=== PATIENT | female | born 1995 | race American Indian/Alaskan Native ===

== ENCOUNTER 2017-03-31 16:46 | Emergency (ER) | payer SELFPAY ==
[2017-03-31 16:59] VITALS: BP 99/66
[2017-03-31 17:44] LABS: Basophils % (Auto) 0.5 % (0.0-1.8); Eosinophils % (Auto) 5.9 % (0.0-4.3); Hematocrit 39.8 % (30.3-42.9); Hemoglobin 14.1 gm/dl (10.1-14.3); Mean Corpuscular HGB Conc 35 % (30-34); Mean Corpuscular Hemoglobin 34 pg (28-32); Mean Corpuscular Volume 96 fl (79-97); Platelet Count 229 K/mm3 (140-440); Red Blood Count 4.15 M/mm3 (3.65-5.03); White Blood Count 10.2 K/mm3 (4.5-11.0)
[2017-03-31 17:54] LABS: Alanine Aminotransferase 15 units/L (7-56); Albumin 4.5 g/dL (3.9-5); Albumin/Globulin Ratio 1.3 %; Alkaline Phosphatase 64 units/L (35-129); Anion Gap 18 mmol/L; BUN/Creatinine Ratio 18; Blood Urea Nitrogen 18 mg/dL (7-17); Calcium 9.8 mg/dL (8.4-10.2); Carbon Dioxide 26 mmol/L (22-30); Chloride 98.5 mmol/L (98-107); Glucose 64 mg/dL (65-100); Potassium 4.1 mmol/L (3.6-5.0); Sodium 138 mmol/L (137-145)
== END 2017-03-31 17:56 ==
LOC: ED 16:46
DX: N89.8 Other specified noninflammatory disorders of vagina (principal); Z53.21 Procedure and treatment not carried out due to patient leaving prior to being seen by health care provider
CPT/HCPCS: 36415; 80053; 84703; 85025

== ENCOUNTER 2019-12-06 06:33 | Emergency (ER) | payer MEDICAID | END 2019-12-06 06:50 | disposition left against medical advice (07) | LOC: ED 06:33 | DX: R09.81 Nasal congestion (principal); Z53.21 Procedure and treatment not carried out due to patient leaving prior to being seen by health care provider ==

== ENCOUNTER 2020-10-27 04:05 | Emergency (ER) | payer MEDICAID ==
[2020-10-27 04:23] VITALS: BP 126/84
[2020-10-27] MEDS ORDERED: AZITHROMYCIN 1 GM ORAL PWDR PACKET PO ONE (06:46)
[2020-10-27] MEDS ORDERED: metroNIDAZOLE 500 MG TAB PO ONE (06:46)
[2020-10-27] MEDS ORDERED: LIDOCAINE-MPF (1%) 10 MG/1 ML VIAL 5 ML INFILTRATI ONE (06:46)
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
== END 2020-10-27 07:30 | disposition left against medical advice (07) ==
LOC: ED 04:05
DX: F20.9 Schizophrenia, unspecified (principal); R30.0 Dysuria; F17.200 Nicotine dependence, unspecified, uncomplicated; Z98.890 Other specified postprocedural states
CPT/HCPCS: 99283; J0696